=== PATIENT | female | born 1950 | race Caucasian/White ===

== ENCOUNTER 2019-10-31 15:16 | Outpatient (CLI) | payer MEDICARE ==
--- NOTE | 2019-10-31 16:11 | BD ---
Exam: DEXA Bone Density 10/31/19 INDICATIONS: Postmenopausal screening. Lumbar Spine: BMD (g/cm2) T-SCORE L1 0.600 -3.5 L2 0.678 -3.2 L3 0.675 -3.7 L4 0.869 -1.7 L1-L4 0.714 -3.0 Femoral Neck: 0.561 -2.6 Total Femur: Impression: Bone mineral density of the lumbar spine and femoral neck both indicate osteoporosis. POS: AH
--- NOTE | 2019-11-12 12:26 | MMO ---
Bilateral MAMMO Bilat Screen [facility]. CLINICAL HISTORY: Patient is 69 years old and is seen for screening. The patient has no family history of breast cancer. The patient has no personal history of cancer. The patient has a history of right Cyst Aspiration in 1977 - benign. VIEWS: The views performed were: bilateral craniocaudal with tomosynthesis and bilateral mediolateral oblique with tomosynthesis. FILMS COMPARED: The present examination has been compared to a prior imaging study performed at [facility] on 01/21/2017. This study has been interpreted with the assistance of computer-aided detection. MAMMOGRAM FINDINGS: There are scattered fibroglandular densities. There are no suspicious masses, suspicious calcifications, or new areas of architectural distortion. IMPRESSION: THERE IS NO MAMMOGRAPHIC EVIDENCE OF MALIGNANCY. A ROUTINE FOLLOW-UP MAMMOGRAM IN 1 YEAR IS RECOMMENDED. THE RESULTS OF THIS EXAM WERE SENT TO THE PATIENT. ACR BI-RADS Category 1 - Negative MAMMOGRAPHY NOTE: 1. A negative mammogram report should not delay a biopsy if a dominant of clinically suspicious mass is present. 2. Approximately 10% to 15% of breast cancers are not detected by mammography. 3. Adenosis and dense breasts may obscure an underlying neoplasm. Reported by: DEXTER PALMA MD Electonically Signed: [id number]
== END 2019-10-31 15:17 | disposition home or self-care (01) ==
LOC: BICMAMMO 15:16
PROVIDERS: ATTEND Family Medicine
DX: Z12.31 Encounter for screening mammogram for malignant neoplasm of breast (principal); M81.0 Age-related osteoporosis without current pathological fracture
CPT/HCPCS: 77063; 77067; 77080

== ENCOUNTER 2020-01-23 17:08 | Observation (INO) | payer MEDICARE, OTHER ==
[2020-01-23 18:34] LABS: #Eosinphils 0.1 thou/uL (0.0-0.7); #Lymphocytes 1.6 thou/uL (1.20-3.40); #Monocytes 0.3 thou/uL (0.11-0.59); #Neutrophils 4.2 thou/uL (1.40-6.50); %Basophils 0.4 % (0.0-1.0); %Eosinophils 2.2 % (0.0-10.0); %Lymphocytes 25.7 % (21.0-51.0); %Monocytes 5.5 % (0.0-10.0); %Neutrophils 66.3 % (42.0-75.0); Hemoglobin 12.8 g/dL (12.0-16.0); Mean Corpuscular Hemoglobin 32.5 pg (27.0-31.0); Mean Corpuscular Volume 95.6 fL (78.0-98.0); Mean Platelet Volume 8.4 fL (7.4-10.4); Platelet Count 277 thou/uL (130-400); RBC Distribution Width 11.7 % (11.5-14.5); Red Blood Cell (RBC) Count 3.93 mill/uL (4.20-5.40); White Blood Cell (WBC) Count 6.3 thou/uL (4.8-10.8)
[2020-01-23 18:48] LABS: Clarity Clear (Clear); Leukocyte Unable to Interpret (Negative); Nitrite Unable to Interpret (Negative); Specific Gravity, Urine 1.025 (1.002-1.036); pH, Urine 5.5 (5.0-9.0)
[2020-01-23 18:49] LABS: Bilirubin Unable to Interpret (Negative); Blood, Urine Unable to Interpret (Negative); Glucose, Urine (Dipstick) Unable to Interpret mg/dL (Negative); Ketone, Urine Unable to Interpret mg/dL (Negative); Protein, Urine (Dipstick) Negative (Neg-Trace); Urobilinogen UNABLE TO INTERPRET mg/dL (Less than 2)
[2020-01-23 18:52] LABS: Bacteria/HPF None Seen HPF (None Seen); RBC/HPF None Seen HPF (0-3); Squamous Epithelial 0-3 HPF (0-3)
[2020-01-23 18:57] LABS: ALT (SGPT) 58 U/L (8-55); AST (SGOT) 50 U/L (5-34); Albumin 4.7 g/dL (3.4-4.8); Alkaline Phosphatase 111 U/L (40-110); Anion Gap 12 mmol/L (10-20); BUN (Urea Nitrogen) 15 mg/dL (9.8-20.1); Bilirubin, Total 0.7 mg/dL (0.2-1.2); CK (CPK) 173 U/L (29-168); Calc. Creatinine Clearance 0 mL/min (70-130); Calcium 9.8 mg/dL (7.8-10.44); Carbon Dioxide 26 mmol/L (23-31); Chloride 104 mmol/L (98-107); Estimated GFR-MDRD 57; Globulin 3.9 g/dL (2.4-3.5); Glucose 90 mg/dL (80-115); Potassium 3.8 mmol/L (3.5-5.1); Protein, Total 8.6 g/dL (6.0-8.3); Sodium 138 mmol/L (136-145)
--- NOTE | 2020-01-23 19:07 | RAD ---
PORTABLE CHEST: 01/23/20 HISTORY: Dysuria. Heart size and mediastinum are within normal limits. The lungs are clear of any infiltrates. No sign ificant bony findings. The bones do appear demineralized. IMPRESSION: No active intrathoracic disease. POS: YAMIL
[2020-01-23] MEDS ORDERED: Aspirin Chewable 81 MG TAB ONE (21:24)
[2020-01-23] MEDS ORDERED: cefTRIAXone\\ROCEPHIN 2 GM VIAL ONE (21:25)
[2020-01-23] MEDS ORDERED: Acetaminophen 325 MG TAB PO PRN (21:43)
[2020-01-23 21:55] LABS: Troponin I Less than 0.010 ng/mL (< 0.028)
[2020-01-23 22:37] VITALS: BMI 25.2
--- NOTE | 2020-01-24 01:11 | HP ---
PRIMARY CARE PHYSICIAN: Dr. Hill. CHIEF COMPLAINT: Urinary discomfort. HISTORY OF PRESENT ILLNESS: The patient is a 69-year-old female with past medical history significant for osteoporosis and COPD, who presented to the ER today with complaints of dysuria, burning with urination, frequency of urination, and urgency for the last week. She states that she feels like she has UTI and has a history of frequent UTIs and this feels similar to that. She has been taking AZO to help with symptoms. She denied any nausea, vomiting, diarrhea, fever, body aches, or chills at that time. The patient also states that she has intermittent palpitations and shortness of breath, especially when completing any ADLs, although sometimes the shortness of breath will happen even while sitting still. She will use her inhaler and states that this slowly helps the shortness of breath go away. She last felt these palpitations and shortness of breath two weeks ago, the longest the episodes have lasted have been about 20 minutes. Usually, she is able to recover pretty quickly though. The patient does not require home oxygen usually. Today in the ER, they completed the EKG, urinalysis, lab work, and a chest x-ray. While she was in the ER, she called for staff assistance because she began having palpitations and shortness of breath. According to the ER MD, the patient was tachypneic, tachycardic, and appeared in moderate distress. EKG was performed at that time that showed a rate of 160-180. The symptoms rapidly improved and her EKG showed a heart rate of 108. The patient states that is what it feels like when she has these episodes. Today in the ER, she was administered ceftriaxone 2 g IV and aspirin 324 mg. PAST MEDICAL HISTORY: COPD and osteoporosis. PAST SURGICAL HISTORY: None. ALLERGIES: CODEINE. MEDICATIONS: Heartburn pill, unknown name and an inhaler. SOCIAL HISTORY: The patient lives with her sister currently. She denies any smoking, alcohol, or drug use. FAMILY HISTORY: Unknown. REVIEW OF SYSTEMS: All other review of systems is negative unless noted in the HPI. PHYSICAL EXAMINATION: VITAL SIGNS: Blood pressure 178/98, pulse 76, respiratory rate 18, temperature 99.1 orally, and O2 saturation 98% on 2 L. CONSTITUTIONAL: Afebrile, hypertensive. HEENT: Head; atraumatic and normocephalic. Eyes, extraocular muscles intact. PERRLA. NECK: Trachea midline. Normal range of motion. RESPIRATORY: Clear to auscultation bilaterally. Expiratory wheezes when asked to sit forward, but quickly recovered. CARDIOVASCULAR: Regular rate and rhythm. No rubs. No murmurs. No gallops. ABDOMEN: Suprapubic region tender. No guarding. No rigidity. Normal bowel sounds. EXTREMITIES: Normal range of motion. Pedal pulse and posterior tibial pulse normal. LABORATORY DATA AND IMAGING: Chest x-ray showed no active intrathoracic disease. EKG showed normal sinus rhythm, 75 beats per minute. Second EKG during her episode had lots of motion artifact, no acute ischemic changes, heart rate 99. White blood cell 6.3, red blood cells 3.93. Sodium 138, potassium 3.8, chloride 104, creatinine 0.97, GFR 57, glucose 90, AST 50, ALT 58, CK 173. Troponin negative. Urine, orange; urine white blood cells 11-20. IMPRESSION AND PLAN: The patient with episode of tachycardia. We will monitor the patient on telemetry throughout the night to see if we can capture the episode again. The patient was able to recover quickly on her own in the ER, but we were not able to get a good read out on the rhythm itself. The patient did have slight chest pain during the event. We will monitor her troponins throughout the night along with her blood pressures. The patient with probable urinary tract infection. We will continue IV antibiotics. Urinary tract infection does not show on the urinalysis but the patient has been taking Azo for the past few days. We will continue to treat and administer any necessary pain medications or antipyretics if needed. Chronic obstructive pulmonary disease, we will continue the patient's inhaler as needed. She is currently on oxygen at 2 L. We will wean her off the oxygen when able to and assess whether she truly needs it at this moment or not. Gastrointestinal and deep venous thrombosis prophylaxis in place. The patient wishes to be a full code. Her surrogate decision maker is her daughter, Alis Green and her other daughter, Brina Alonso. The patient has been discussed with Dr. Conley. Job ID: [id number] [facility]
[2020-01-24 01:21] LABS: Troponin I Less than 0.010 ng/mL (< 0.028)
[2020-01-24 05:21] LABS: #Eosinphils 0.1 thou/uL (0.0-0.7); #Lymphocytes 1.9 thou/uL (1.20-3.40); #Monocytes 0.3 thou/uL (0.11-0.59); #Neutrophils 2.1 thou/uL (1.40-6.50); %Basophils 0.4 % (0.0-1.0); %Lymphocytes 42.6 % (21.0-51.0); %Monocytes 7.1 % (0.0-10.0); %Neutrophils 46.9 % (42.0-75.0); Hemoglobin 10.2 g/dL (12.0-16.0); Mean Corpuscular HGB CONC 33.5 g/dL (32.0-36.0); Mean Corpuscular Hemoglobin 32.2 pg (27.0-31.0); Mean Platelet Volume 8.1 fL (7.4-10.4); Platelet Count 207 thou/uL (130-400); RBC Distribution Width 11.8 % (11.5-14.5); Red Blood Cell (RBC) Count 3.15 mill/uL (4.20-5.40); White Blood Cell (WBC) Count 4.6 thou/uL (4.8-10.8)
[2020-01-24 05:46] LABS: Anion Gap 10 mmol/L (10-20); BUN (Urea Nitrogen) 13 mg/dL (9.8-20.1); Calc. Creatinine Clearance 75 mL/min (70-130); Calcium 8.5 mg/dL (7.8-10.44); Carbon Dioxide 23 mmol/L (23-31); Chloride 109 mmol/L (98-107); Estimated GFR-MDRD 71; Glucose 92 mg/dL (80-115); Potassium 3.8 mmol/L (3.5-5.1); Sodium 138 mmol/L (136-145)
[2020-01-24] MEDS ORDERED: Regadenoson 0.4 MG/5 ML SYRINGE ONE (08:35)
[2020-01-24] MEDS ORDERED: Enoxaparin Sodium 40 MG/0.4 ML SYRINGE SC SCH (09:00)
[2020-01-24] MEDS ORDERED: Famotidine 20 MG TAB PO SCH (09:00)
[2020-01-24 12:51] LABS: SARS-CoV-2 MS2 Positive; SARS-CoV-2 N Gene Negative; SARS-CoV-2 S Gene Negative; SARS-CoV-2 by NAA Not Detected (NotDetected); SARS-CoV-2 orf1ab Negative
[2020-01-24] MEDS ORDERED: Non-Formulary Item 1 EACH (Albuterol Sulfate [Proair Digihaler] 90 MCG Aer.Pw.Bas) IH PRN (14:41)
[2020-01-24] MEDS ORDERED: Albuterol Sulfate 2.5 mg/3 ml Neb EZPAP PRN (14:41)
[2020-01-24 14:44] VITALS: BP 153/78; TEMP 98.3
[2020-01-24 16:01] LABS: ALT (SGPT) 51 U/L (8-55); AST (SGOT) 40 U/L (5-34); Alkaline Phosphatase 95 U/L (40-110); Bilirubin, Direct 0.3 mg/dL (0.1-0.3); Protein, Total 7.2 g/dL (6.0-8.3)
[2020-01-24] MEDS ORDERED: Ondansetron PF 4 MG/2 ML Vial IVP PRN (16:01)
--- NOTE | 2020-01-24 16:07 | NM ---
NUCLEAR MEDICINE CARDIAC MYOCARDIAL PERFUSION SPECT EJECTION FRACTION STUDY WALL MOTION CINE: DATE: 01/24/2020 HISTORY: 69-year-old female with chest pain TECHNIQUE: Number of days: 1 Rest study: Technetium 99m-sestamibi (Cardiolite) dose: 9.5 mCi Pharmacologic stress: Lexiscan dose: 0.4 mg Stress study: Technetium 99m-sestamibi (Cardiolite) dose: 29.2 mCi FINDINGS: CARDIAC (MYOCARDIAL PERFUSION) SPECT Distribution of sestamibi is homogeneous throughout the left ventricle, with no fixed or reversible m yocardial perfusion defects. EJECTION FRACTION STUDY Left ventricular EF = 86 % WALL MOTION CINE The left ventricular wall motion is normal. There is normal systolic wall thickening. IMPRESSION: Normal.
[2020-01-24] MEDS ORDERED: Budesonide 0.25 MG/2 ML NEB INH SCH ×2 (16:45→18:30)
[2020-01-24] MEDS ORDERED: Albuterol Sulfate 2.5 mg/3 ml Neb NEB SCH (17:00)
[2020-01-24] MEDS ORDERED: cefTRIAXone\\ROCEPHIN 2 GM in Sodium Chloride 0.9% 100 ML IVPB SCH (21:00)
[2020-01-24] MEDS ORDERED: Sucralfate 1 GM TAB PO SCH (21:00)
--- NOTE | 2020-01-25 03:12 | DIS ---
DATE OF ADMISSION: 01/23/2020 DATE OF DISCHARGE: 01/24/2020 DISCHARGE DIAGNOSES: 1. Palpitations, possibly secondary to asthma exacerbation. 2. Transaminitis. 3. UTI 4. Transaminitis 5. Anemia CONSULTATIONS: None. PROCEDURES: Nuclear stress test. BRIEF HISTORY OF PRESENT ILLNESS: This is a 69-year-old female with a past medical history of asthma as a child who presented to the emergency room with frequent attacks of shortness of breath and tachycardia. The patient states that she feels short of breath spontaneously while sitting still, while watching TV, and on exertion. Her symptoms had gotten worse over the past 2 weeks. She states she feels chest tightness and is unable to take any deep breath. She came to the ER for further evaluation. In the ER, her heart rate was 160, but improved rapidly to 108 without any treatment. Her UA showed 11-20 white cells. She was given IV ceftriaxone and aspirin and admitted for further workup. HOSPITAL COURSE: Palpitations/shortness of breath, possibly secondary to asthma exacerbation: The patient was monitored on telemetry and did not have any significant arrhythmias except for sinus tachycardia. ECHO showed some diastolic dysfunction. Nuclear stress test was normal. During the nuclear stress test she stated the chemical she received caused her to be short of breath and give her chest tightness. She reported history of asthma as a child. She was given albuterol with improvement. She experienced another episodes of chest tightness twenty minutes later. EKG was unremarkable, but she had some mild wheezing, so was given pulmicort with resolution of her symptoms . Her chest x-ray was normal. She ambulated around the hallway and maintained saturations of 92%-97%. She was advised to follow up with a planning and analysis manager and consider getting outpatient PFTs. She was discharged with Flovent diskus since symbicort/pulmicort was not covered by her insurance. Possible UTI: The patient reported some burning sensation when she pees. Urine culture showed 50,000 to 75,000 gram negative rods. She states her symptoms resolved with IV ceftriaxone; therefore, she was given two more days of cefdinir to complete a 3-day course of antibiotics. Transaminitis: The patient had presented with AST 50, ALT 58, and alkaline phosphatase 111. She denied any abdominal pain. LFTs will be checked, and her ALT and alkaline phosphatase normalized, but her AST remained slightly elevated at 40. The patient should consider repeat LFTs in a week. Anemia: The patient's hemoglobin dropped to 10.2 on 01/23. She denied any bleeding. Her white count also dropped to 4.6. Consider repeat labs as an outpatient in a week. COVID testing was done and was negative. DISCHARGE PHYSICAL EXAMINATION: VITAL SIGNS: Temperature 98.3, heart rate 67, respiratory rate 20, O2 saturation 97% on room air, blood pressure 144/67. GENERAL: The patient is alert, awake, and oriented x3. CVS: Regular rate and rhythm with no murmurs, rubs, or gallops. LUNGS: Relatively clear to auscultation bilaterally with occasional wheeze at the left lung base. ABDOMEN: Positive bowel sounds, soft, nontender, nondistended. EXTREMITIES: No edema. PERTINENT LABORATORY DATA: CBC, 01/23: White count 4.6, hemoglobin 10.2, hematocrit 30.3, platelet count 207. BMP, 01/23: Unremarkable except for chloride 109. LFTs, 01/23: AST 40, ALT 51, alkaline phosphatase 95. Troponin I: Less than 0.010 x 3. UA, 01/22: [place] urine, 11-20 white blood cells, 1+ ammonium biurate crystals. COVID PCR, 01/22: Negative. IMAGING: Chest x-ray, 01/22: No acute disease. Nuclear stress test, 01/23: Normal. Echocardiogram, 01/23: EF 55% to 60%. with diastolic dysfunction. Mild mitral regurgitation and mild tricuspid regurgitation. DISCHARGE CONDITION: Stable. ACTIVITY: As tolerated. DIET: Heart healthy diet. DISCHARGE MEDICATIONS: 1. Cefdinir 300 mg p.o. q.12 hours. 2. Pulmicort 90 mcg inhaled b.i.d. 3. Albuterol inhaler 90 mcg two puffs q.6 hours p.r.n. 4. Nexium 40 mg p.o. daily. 5. Raloxifene 60 mg p.o. daily. 6. Citalopram 5 mg p.o. daily. 7. Sucralfate 1 mg p.o. b.i.d. DISCHARGE INSTRUCTIONS: The patient to follow up with her PCP and get PFTs as an outpatient. Consider repeat LFTs and CBC in a week. Consider further workup of anemia. Job ID: [id number] [facility]
[2020-01-25] MEDS ORDERED: Non-Formulary Item 1 EACH (Escitalopram Oxalate [Escitalopram Oxalate] 5 MG Tablet) PO SCH (09:00)
[2020-01-25] MEDS ORDERED: Non-Formulary Item 1 EACH (Esomeprazole Magnesium [Nexium] 20 MG Capsule.Dr) PO SCH (09:00)
--- NOTE | 2020-02-01 13:16 | EKG ---
Test Reason : Blood Pressure : / mmHG Vent. Rate : 072 BPM Atrial Rate : 072 BPM P-R Int : 156 ms QRS Dur : 084 ms QT Int : 428 ms P-R-T Axes : 063 001 027 degrees QTc Int : 468 ms Normal sinus rhythm Normal ECG When compared with ECG of 23-JAN-2020 19:29, (Unconfirmed) Previous ECG has undetermined rhythm, needs review Confirmed by DR. Dali KAYE ([id number]) on 02/01/2020 1:15:38 PM Referred By: Confirmed By:DR. Dali KAYE
== END 2020-01-24 17:57 | disposition home or self-care (01) ==
LOC: ERS 17:08 → 2SE 22:22
PROVIDERS: ADMIT Internal Medicine; ATTEND Internal Medicine
DX: N39.0 Urinary tract infection, site not specified (principal); R00.2 Palpitations; R00.0 Tachycardia, unspecified; R07.89 Other chest pain; R06.02 Shortness of breath; R74.01 Elevation of levels of liver transaminase levels; D64.9 Anemia, unspecified; M81.0 Age-related osteoporosis without current pathological fracture; J44.9 Chronic obstructive pulmonary disease, unspecified; Z79.810 Long term (current) use of selective estrogen receptor modulators (SERMs); Z79.899 Other long term (current) drug therapy; Z88.5 Allergy status to narcotic agent; Z20.828 Contact with and (suspected) exposure to other viral communicable diseases
CPT/HCPCS: 71045; 78452; 80048; 80053; 80076; 82550; 84484 ×3; 85025 ×2; 87077; 87086; 87186; 93005 ×2; 93017; 93306; 94640; 96372; 96374; 99285; A9500; G0378 ×3; U0003; 36415; 81003; 81015; 87635; 93010; J0280; J0696; J1650; J2785; J7626

== ENCOUNTER 2020-12-05 15:47 | Emergency (ER) | payer MEDICAID, MEDICARE ==
[~2020-12-05 15:47] MED LIST: Iopamidol-370 76% 500 ML 1 ML ONE
[2020-12-05 16:21] LABS: #Lymphocytes 0.9 thou/uL (1.20-3.40); #Monocytes 0.3 thou/uL (0.11-0.59); %Eosinophils 0.8 % (0.0-10.0); %Lymphocytes 27.6 % (21.0-51.0); %Monocytes 9.6 % (0.0-10.0); Hemoglobin 10.7 g/dL (12.0-16.0); Mean Corpuscular HGB CONC 33.1 g/dL (32.0-36.0); Mean Corpuscular Hemoglobin 30.8 pg (27.0-31.0); Mean Platelet Volume 7.5 fL (7.4-10.4); Platelet Count 264 thou/uL (130-400); RBC Distribution Width 12.1 % (11.5-14.5); Red Blood Cell (RBC) Count 3.47 mill/uL (4.20-5.40); White Blood Cell (WBC) Count 3.2 thou/uL (4.8-10.8)
[2020-12-05] MEDS ORDERED: Ketorolac Tromethamine 30 MG/ML VIAL ONE (16:32)
[2020-12-05] MEDS ORDERED: Ondansetron PF 4 MG/2 ML Vial ONE (16:32)
[2020-12-05 16:38] LABS: ALT (SGPT) 41 U/L (8-55); AST (SGOT) 45 U/L (5-34); Albumin 3.8 g/dL (3.4-4.8); Alkaline Phosphatase 64 U/L (40-110); Anion Gap 13 mmol/L (10-20); BUN (Urea Nitrogen) 8 mg/dL (9.8-20.1); Calc. Creatinine Clearance 0 mL/min (70-130); Calcium 9.4 mg/dL (7.8-10.44); Carbon Dioxide 22 mmol/L (23-31); Chloride 106 mmol/L (98-107); Globulin 3.5 g/dL (2.4-3.5); Glucose 114 mg/dL (80-115); Potassium 3.2 mmol/L (3.5-5.1); Protein, Total 7.3 g/dL (5.8-8.1); Sodium 138 mmol/L (136-145)
== END 2020-12-05 20:15 | disposition home or self-care (01) ==
LOC: ERS 15:47
DX: U07.1 COVID-19 (principal); J12.82 Pneumonia due to coronavirus disease 2019; M81.0 Age-related osteoporosis without current pathological fracture
CPT/HCPCS: 36415; 71045; 71275; 80053; 84484; 85025; 85379; 93005; 94760; 96374; 96375; J1885; J2405; Q9967